=== PATIENT | female | born 1955 | race Two or more races ===

== ENCOUNTER 2024-08-09 16:39 | Inpatient (IN) | payer OTHER ==
[~2024-08-09] VITALS: Ht 152.4 cm; Wt 102.5 kg
[~2024-08-09 16:39] MED LIST: ATORVASTATIN CA10 MG PO; CATAPRES0.1 MG; CIPRO500 MG PO; DICY10CA PO; LISINOPRIL10 MG; LOSARTAN POTASS50 MG PO; METOPROLOL SUC100 MG PO; NIFE60TA3 PO; ULTRACET PO; ZANTAC300 MG PO
[2024-08-09] MEDS ORDERED: ELIQUIS5 MG (17:06)
[2024-08-09] MEDS ORDERED: TOPROL XL200 MG (17:07)
[2024-08-09] MEDS ORDERED: LASIX20 MG (17:07)
[2024-08-09] MEDS ORDERED: LABETALOL HCL 100 MG/20 ML ML ONE (18:42)
[2024-08-09] MEDS ORDERED: LABETALOL HCL 200 MG/40 ML VIAL IV ONE (18:45)
[2024-08-09] MEDS ORDERED: 0.9 % SODIUM CHLORIDE 1,000 ML IV ONE (18:45)
[2024-08-09 19:14] LABS: HEMATOCRIT 43.7 % (36.0-45.00); HEMOGLOBIN 14.7 g/dL (12.0-15.00); MEAN CELL VOLUME 90.3 fL (80.00-100.00); MEAN CORPUSCULAR HEMOGLOBIN 30.4 pg (27.00-32.0); MEAN CORPUSCULAR HGB CONC 33.7 g/dl (32.0-36.0); PLATELET COUNT 227 K/uL (150-450); RED BLOOD COUNT 4.84 M/uL (4.00-6.00); RED CELL DISTRIBUTION WIDTH 14.8 % (11.5-14.5)
[2024-08-09 19:39] LABS: ALBUMIN 3.3 gm/dL (3.4-5.0); BILIRUBIN TOTAL 0.81 mg/dL (0.3-1.2); CALCIUM 9.1 mg/dL (8.5-10.1); CREATININE SERUM 0.97 mg/dL (0.55-1.02); GFR 57.28; POTASSIUM 3.85 mEq/L (3.5-5.1); TOTAL PROTEIN 6.3 gm/dL (6.4-8.2)
[2024-08-09] MEDS ORDERED: METOPROLOL SUCCINATE 100 MG TAB.SR.24H PO SCH (23:04)
[2024-08-09] MEDS ORDERED: AMIODARONE HCL 50 MG/ML AMPUL IV ONE (23:15)
[2024-08-09] MEDS ORDERED: ACETAMINOPHEN 500 MG GEL..CAP PO PRN (23:15)
[2024-08-10] MEDS ORDERED: FUROsemide 20 MG/2 ML VIAL IV SCH (01:00)
[2024-08-10 04:17] VITALS: BP 129/74; O2SAT 99
[2024-08-10 05:10] LABS: PH,URINE 7.5 (5.0-8.0); URINE APPEARANCE Clear; URINE BILIRRUBIN Negative (NEGATIVE); URINE BLOOD Negative; URINE COLOR Yellow; URINE GLUCOSE Negative (NEGATIVE); URINE KETONE Negative (NEGATIVE); URINE LEUKOCYTE Negative; URINE NITRATE Negative; URINE PROTEIN Negative (NEGATIVE); URINE UROBILINOGEN 0.2 E.U./dl
[2024-08-10 05:11] LABS: URINE BACTERIA 149.3 uL (0.0-1933); URINE EPITHELIAL CELLS 3.3 uL (0.0-38.8); URINE WBC 6.4 uL (0.0-23.2)
[2024-08-10 05:19] LABS: URINE RBC 0.8 uL (0.0-20.8)
[2024-08-10 07:06] LABS: INR 1.12; PROTHROMBIN TIME 12.1 SECONDS (9.0-11.5)
[2024-08-10] MEDS ORDERED: NITROGLYCERIN 250 ML IV SCH (07:45)
[2024-08-10] MEDS ORDERED: NITROGLYCERIN IN 5 % DEXTROSE 250 ML IV SCH (08:30)
[2024-08-10] MEDS ORDERED: AMIODARONE HCL 200 MG TABLET PO SCH (09:00)
[2024-08-10] MEDS ORDERED: FAMOTIDINE/PF 20 MG in 0.9 % SODIUM CHLORIDE 8 ML IV PUSH SCH (09:00)
[2024-08-10] MEDS ORDERED: APIXABAN 5 MG TABLET PO SCH (09:00)
[2024-08-10] MEDS ORDERED: ATORVASTATIN CALCIUM 40 MG TABLET PO SCH (09:00)
[2024-08-10 09:23] VITALS: BP 160/95; O2SAT 99
[2024-08-10 17:20] VITALS: BP 160/90; O2SAT 96
[2024-08-11 00:55] VITALS: BP 156/87; O2SAT 99
[2024-08-11 09:01] VITALS: BP 143/91; O2SAT 98
[2024-08-11] MEDS ORDERED: AMIODARONE HCL 200 MG TABLET PO SCH (17:00)
[2024-08-11 17:14] VITALS: BP 144/99; O2SAT 97
[2024-08-12 02:03] VITALS: BP 141/85; O2SAT 96
[2024-08-12 10:28] VITALS: BP 137/98; O2SAT 95
== END 2024-08-12 12:04 | disposition home or self-care (01) | DRG 308 ==
LOC: ER 16:42 → MEDJ 23:06
PROVIDERS: General Practice; ADMIT Internal Medicine; ATTEND Internal Medicine
PROC: BW24ZZZ Computerized Tomography (CT Scan) of Chest and Abdomen (ICD-10-PCS; principal; 2024-08-09)
PROC: B24BYZZ Ultrasonography of Heart with Aorta using Other Contrast (ICD-10-PCS; 2024-08-09)
PROC: 4A12X4Z Monitoring of Cardiac Electrical Activity, External Approach (ICD-10-PCS; 2024-08-10)
DX: I48.20 Chronic atrial fibrillation, unspecified (principal); J18.9 Pneumonia, unspecified organism; I50.9 Heart failure, unspecified; I11.0 Hypertensive heart disease with heart failure; E66.01 Morbid (severe) obesity due to excess calories; E78.5 Hyperlipidemia, unspecified; D72.829 Elevated white blood cell count, unspecified

== ENCOUNTER 2024-09-06 13:45 | Inpatient (IN) | payer OTHER ==
[~2024-09-06] VITALS: Ht 152.4 cm; Wt 97.1 kg
[~2024-09-06 13:45] MED LIST changes: +ELIQUIS5 MG; +LASIX20 MG; +TOPROL XL200 MG
--- NOTE | 2024-09-06 15:06 | NUR ---
SE RECIBE PACIENTE ALERTA Y ORIENTADA X3 LA CUAL REFIERE VENIR A CAUSA DE QUE MEYERS ESTADO PRESENTADO INFLAMACION EN AREA DE PIERNAS. AL MOMENTO PACIENTE REFIERE NO TENER DOLOR, AREA AFECTADA NO SE VE ENROJECIDA NI CALIENTE. SE MIDEN S/V Y SE UBICA.
[2024-09-06 17:48] LABS: HEMATOCRIT 42.7 % (36.0-45.00); HEMOGLOBIN 13.9 g/dL (12.0-15.00); MEAN CORPUSCULAR HEMOGLOBIN 29.5 pg (27.00-32.0); MEAN CORPUSCULAR HGB CONC 32.5 g/dl (32.0-36.0); PLATELET COUNT 224 K/uL (150-450); RED BLOOD COUNT 4.69 M/uL (4.00-6.00); RED CELL DISTRIBUTION WIDTH 15.3 % (11.5-14.5)
--- NOTE | 2024-09-06 18:03 | NUR ---
GABBY EDUCA A PTE SOBRE [place] MEDICO, SE BELLE MUESTRAS DE LABORATORIO UTILIZANDO MEDIDAS ASEPTICAS. SE COLOCA H/L MERCED DE EDEMA. SE NOTICA RX PENDIENTE A REALIZAR.
[2024-09-06 18:07] LABS: INR 1.15; PARTIAL THROMBOPLASTIN TIME 31.7 SECONDS (22.0-34.0); PROTHROMBIN TIME 12.4 SECONDS (9.0-11.5)
--- NOTE | 2024-09-06 18:15 | NUR ---
SE RECIBE PTE ALERTA Y ORIENTADA X3 EN AREA DE CHEST PAIN, SE COLOCA EN CAMA #17 Y SE CONECTA A MONITOR CARDIACO Y OXIMETRIA DE PULSO. SE CANALIZA PTE EN MANO DERECHA #20 DONDE SE DONIS EN H/L. CAMILLE KEBEDE ENTREGA EKG Y PTE. SE DONIS LA MISMA EN ESPERA DE DR VAZQUEZ POR CONSULTA.
[2024-09-06 18:19] LABS: ALBUMIN 2.9 gm/dL (3.4-5.0); BILIRUBIN TOTAL 0.54 mg/dL (0.3-1.2); CALCIUM 8.7 mg/dL (8.5-10.1); CREATININE SERUM 0.9 mg/dL (0.55-1.02); GFR 62.45; GLOBULINA 3.2 G/DL (2.4-3.5); POTASSIUM 3.41 mEq/L (3.5-5.1); TOTAL PROTEIN 6.1 gm/dL (6.4-8.2)
[2024-09-06 18:52] LABS: URINE APPEARANCE Clear; URINE BILIRRUBIN Negative (NEGATIVE); URINE BLOOD Negative; URINE COLOR Yellow; URINE GLUCOSE Negative (NEGATIVE); URINE KETONE Negative (NEGATIVE); URINE LEUKOCYTE Negative; URINE NITRATE Negative; URINE PROTEIN Negative (NEGATIVE); URINE UROBILINOGEN 0.2 E.U./dl
[2024-09-06 18:53] LABS: URINE BACTERIA 25.6 uL (0.0-1933); URINE RBC 2.5 uL (0.0-20.8)
[2024-09-06 19:14] LABS: URINE CAST 0.14 uL (0.0-1.40); URINE WBC 0.3 uL (0.0-23.2)
[2024-09-06] MEDS ORDERED: FUROsemide 20 MG/2 ML VIAL IV SCH (21:00)
[2024-09-06] MEDS ORDERED: ATORVASTATIN CALCIUM 40 MG TABLET PO SCH (21:00)
[2024-09-06] MEDS ORDERED: ENOXAPARIN SODIUM 100 MG/ML SYRINGE SUBCUTANEO SCH (21:00)
[2024-09-06] MEDS ORDERED: AMIODARONE HCL 50 MG/ML AMPUL IV ONE ×2 (21:00→21:27)
[2024-09-06] MEDS ORDERED: IPRATROPIUM BROMIDE 0.5 MG/2.5 ML AMPUL.NEB IH SCH (21:04)
[2024-09-06] MEDS ORDERED: ACETAMINOPHEN 500 MG GEL..CAP PO PRN (21:15)
[2024-09-06] MEDS ORDERED: FUROsemide 20 MG/2 ML VIAL ONE ×3 (21:27→23:26)
[2024-09-06 22:03] VITALS: BP 125/97; O2SAT 96
[2024-09-07 00:35] VITALS: BP 172/108; O2SAT 96
[2024-09-07 03:41] VITALS: BP 145/92; O2SAT 95
[2024-09-07 08:37] VITALS: BP 135/106; O2SAT 95
[2024-09-07] MEDS ORDERED: METOPROLOL SUCCINATE 100 MG TAB.SR.24H PO SCH (09:00)
[2024-09-07] MEDS ORDERED: FAMOTIDINE/PF 20 MG in 0.9 % SODIUM CHLORIDE 8 ML IV PUSH SCH (09:00)
[2024-09-07] MEDS ORDERED: LOSARTAN POTASSIUM 25 MG TABLET PO SCH (09:00)
[2024-09-07] MEDS ORDERED: POTASSIUM CHLORIDE 10 MEQ CAPSULE PO NR (09:15)
[2024-09-07 17:30] VITALS: BP 150/100
[2024-09-07] MEDS ORDERED: ENALAPRILAT DIHYDRATE 1.25 MG/ML VIAL IV PRN (21:30)
[2024-09-07 22:41] VITALS: BP 172/135
[2024-09-08 08:43] VITALS: BP 137/94
[2024-09-08 12:17] LABS: ABG PH 7.449 (7.35-7.45)
[2024-09-08 12:18] LABS: ABG PO2 85.9 mmHg (80-100); ABG pCO2 43.3 mmHg (35-45); BASE EXCESS 4.7 mmol/l; BICARBONATE 29.3 mmol/l (23-25); SaO2 97.1 %; Tco2 30.7 mmol/l; allen test SATISFACTORY; o2 21 %; puncture site RADIAL RIGHT
[2024-09-08 15:56] LABS: CALCIUM 9.4 mg/dL (8.5-10.1); GFR 55.3
[2024-09-08] MEDS ORDERED: BUMETANIDE 1 MG TABLET PO SCH (17:00)
[2024-09-08 17:22] VITALS: BP 143/88; O2SAT 98
[2024-09-09 02:31] VITALS: BP 135/96
[2024-09-09 08:31] VITALS: BP 112/78
[2024-09-09 16:00] VITALS: BP 155/92
[2024-09-10 01:54] VITALS: BP 131/92; O2SAT 94
[2024-09-10 08:31] VITALS: BP 150/104; O2SAT 96
== END 2024-09-10 15:19 | disposition home or self-care (01) | DRG 292 ==
LOC: ER 13:48 → SEC-K 21:23 → ICU-2 21:23 → MEDI 09-07 13:26
PROVIDERS: General Practice; Internal Medicine; ADMIT Internal Medicine; ATTEND Internal Medicine
PROC: B24BZZZ Ultrasonography of Heart with Aorta (ICD-10-PCS; 2024-09-06)
PROC: 4A12X4Z Monitoring of Cardiac Electrical Activity, External Approach (ICD-10-PCS; principal; 2024-09-07)
DX: I11.0 Hypertensive heart disease with heart failure (principal); I48.20 Chronic atrial fibrillation, unspecified; I50.9 Heart failure, unspecified; E66.01 Morbid (severe) obesity due to excess calories; E78.5 Hyperlipidemia, unspecified

== ENCOUNTER 2024-11-23 15:33 | Emergency (ER) | payer OTHER ==
[~2024-11-23] VITALS: Ht 152.4 cm; Wt 90.7 kg
[2024-11-23 16:58] LABS: HEMATOCRIT 42.5 % (36.0-45.00); MEAN CELL VOLUME 89.8 fL (80.00-100.00); MEAN CORPUSCULAR HEMOGLOBIN 29.6 pg (27.00-32.0); PLATELET COUNT 204 K/uL (150-450); RED BLOOD COUNT 4.74 M/uL (4.00-6.00)
[2024-11-23 17:11] LABS: INR 1.11; PARTIAL THROMBOPLASTIN TIME 27.2 SECONDS (22.0-34.0)
[2024-11-23 17:16] LABS: ALBUMIN 3.3 gm/dL (3.4-5.0); BILIRUBIN TOTAL 0.53 mg/dL (0.3-1.2); CREATININE SERUM 1.28 mg/dL (0.55-1.02); GFR 41.59; GLOBULINA 3.3 G/DL (2.4-3.5); POTASSIUM 3.69 mEq/L (3.5-5.1); TOTAL PROTEIN 6.6 gm/dL (6.4-8.2)
[2024-11-23 17:40] LABS: PH,URINE 7.5 (5.0-8.0); URINE APPEARANCE Clear; URINE BILIRRUBIN Negative (NEGATIVE); URINE BLOOD Negative; URINE COLOR Yellow; URINE GLUCOSE Negative (NEGATIVE); URINE KETONE Negative (NEGATIVE); URINE LEUKOCYTE Trace; URINE NITRATE Negative; URINE PROTEIN Trace (NEGATIVE); URINE UROBILINOGEN 0.2 E.U./dl
[2024-11-23 17:41] LABS: URINE BACTERIA 494.3 uL (0.0-1933); URINE EPITHELIAL CELLS 17.2 uL (0.0-38.8); URINE RBC 8.8 uL (0.0-20.8); URINE WBC 19.7 uL (0.0-23.2)
[2024-11-23 17:42] LABS: URINE CAST 0.29 uL (0.0-1.40)
== END 2024-11-23 19:12 | disposition home or self-care (01) ==
LOC: ER 15:35
PROVIDERS: General Practice
DX: R55 Syncope and collapse (principal); R53.81 Other malaise; I10 Essential (primary) hypertension; Z88.0 Allergy status to penicillin; Z88.2 Allergy status to sulfonamides; Z91.013 Allergy to seafood

== ENCOUNTER 2025-02-11 17:08 | Emergency (ER) | payer OTHER ==
[~2025-02-11] VITALS: Ht 152.4 cm; Wt 90.7 kg
[2025-02-11] MEDS ORDERED: CLINDAMYCIN HC300 MG PO (17:28)
[2025-02-11] MEDS ORDERED: AMIODARONE HCL200 MG (17:28)
[2025-02-11 19:11] LABS: BASO % 0.7 % (0.1-1.2); EOS # 0.05 (0.04-0.54); EOS % 1.1 % (0.7-7.0); LYMPH # 0.95 (1.18-3.74); LYMPH % 20.7 % (19.3-53.1); MEAN PLATELET VOLUME 9.30 fl (9.4-12.4); MONO # 0.48 (0.24-0.82); MONO % 10.5 % (4.7-12.5); NEUT # 3.06 (1.56-6.13); NEUT % 66.8 % (34.0-71.1); RED CELL DISTRIBUTION WIDTH 14.4 % (11.6-14.4)
[2025-02-11 19:32] LABS: ALT/SGPT 47.0 U/L (12-78); AST/SGOT 33.0 U/L (15-37); BILIRUBIN TOTAL 0.39 mg/dL (0.3-1.2); BUN CREA RATIO 13.0 (7.0-25.0); CREATININE SERUM 0.96 mg/dL (0.55-1.02); GFR 57.8; GLOBULINA 3.1 G/DL (2.4-3.5); GLUCOSE FASTING 100.0 mg/dL (65-100); OSMOLALITY SERUM 289.0 MOSM/KG (275-295)
[2025-02-11 19:46] LABS: COVID-19 AG NEGATIVE (NEGATIVE)
[2025-02-11] MEDS ORDERED: INTESTINEX680 M1 PO (21:00)
== END 2025-02-11 21:37 | disposition home or self-care (01) ==
LOC: ER 17:08
PROVIDERS: Preventive Medicine Public Health & General Preventive Medicine
DX: S80.822A Blister (nonthermal), left lower leg, initial encounter (principal); R60.0 Localized edema; Z91.013 Allergy to seafood; Z88.2 Allergy status to sulfonamides; Z88.0 Allergy status to penicillin; I25.10 Atherosclerotic heart disease of native coronary artery without angina pectoris; I48.91 Unspecified atrial fibrillation; Z20.822 Contact with and (suspected) exposure to COVID-19

== ENCOUNTER 2025-07-18 13:55 | Inpatient (IN) | payer OTHER ==
[~2025-07-18] VITALS: Ht 162.6 cm; Wt 81.6 kg
[~2025-07-18 13:55] MED LIST changes: +AMIODARONE HCL200 MG; +CLINDAMYCIN HC300 MG PO; +INTESTINEX680 M1 PO
--- NOTE | 2025-07-18 14:45 | NUR ---
PACIENTE FEMINA, C/C DOLOR ABDOMINAL, SE UBICA EN PASILLO PARA SER EVALUADA.
[2025-07-18 17:21] LABS: BASO % 0.6 % (0.1-1.2); EOS # 0.06 (0.04-0.54); EOS % 1.1 % (0.7-7.0); LYMPH # 0.82 (1.18-3.74); LYMPH % 15.5 % (19.3-53.1); MEAN PLATELET VOLUME 9.70 fl (9.4-12.4); MONO # 0.52 (0.24-0.82); MONO % 9.8 % (4.7-12.5); NEUT # 3.85 (1.56-6.13); NEUT % 72.8 % (34.0-71.1); RED CELL DISTRIBUTION WIDTH 14.0 % (11.6-14.4)
[2025-07-18 17:56] LABS: INR 1.15
[2025-07-18 18:21] LABS: ALT/SGPT 32.0 U/L (12-78); AST/SGOT 31.0 U/L (15-37); BILIRUBIN TOTAL 0.35 mg/dL (0.3-1.2); BUN CREA RATIO 13.0 (7.0-25.0); CREATININE SERUM 0.9 mg/dL (0.55-1.02); GFR 62.26; GLOBULINA 3.2 G/DL (2.4-3.5); GLUCOSE FASTING 107.0 mg/dL (65-100); OSMOLALITY SERUM 281.0 MOSM/KG (275-295)
[2025-07-18 18:25] LABS: URINE APPEARANCE Clear; URINE BILIRRUBIN Negative (NEGATIVE); URINE BLOOD Negative; URINE COLOR Yellow; URINE GLUCOSE Negative (NEGATIVE); URINE KETONE Negative (NEGATIVE); URINE LEUKOCYTE Trace; URINE NITRATE Negative; URINE PROTEIN Negative (NEGATIVE); URINE UROBILINOGEN 0.2 E.U./dl
[2025-07-18 18:27] LABS: URINE BACTERIA 21.6 uL (0.0-1933); URINE EPITHELIAL CELLS 4.8 uL (0.0-38.8); URINE RBC 2.2 uL (0.0-20.8); URINE WBC 24.4 uL (0.0-23.2)
[2025-07-18 18:36] LABS: URINE CAST 0.00 uL (0.0-1.40)
[2025-07-18 18:43] LABS: COVID-19 AG NEGATIVE (NEGATIVE)
--- NOTE | 2025-07-18 19:41 | NUR ---
SE ORIENTA PTE SOBRE CRISTIAN DE MUESTRAS LAS CUALES SE EXTRAEN BAJO MEDIDAS ASEPTICAS,SE NOTIFICAN ESTUDIOS PENDIENTES.
--- NOTE | 2025-07-19 02:00 | NUR ---
SE UBICA PACIENTE EN CAMA, SE CONECTA A MONITOR CARDIACO Y OXIMETRIA DE PULSO CONTINUA, SE LE MONITOREAN S/V, SE DOCUMENTAN, SE CANALIZA Y SE ADM MEDICAMENTOS BAJO MEDIDA ASEPTICAS, PACIENTE TOLERA Y SE MANTIENE BAJO OBSERVACION POR CAMBIOS EN ANNE CONDICION.
[2025-07-19] MEDS ORDERED: APIXABAN 5 MG TABLET PO SCH (17:38)
[2025-07-19] MEDS ORDERED: METOPROLOL SUCCINATE 25 MG TAB.SR.24H PO SCH (17:39)
[2025-07-19] MEDS ORDERED: NITROGLYCERIN IN 5 % DEXTROSE 250 ML IV SCH (17:45)
[2025-07-19 23:38] VITALS: BP 151/112; O2SAT 95
[2025-07-20 06:31] VITALS: BP 160/106; O2SAT 99
[2025-07-20 06:58] LABS: BASO % 0.6 % (0.1-1.2); EOS # 0.06 (0.04-0.54); EOS % 1.1 % (0.7-7.0); LYMPH # 0.81 (1.18-3.74); LYMPH % 15.3 % (19.3-53.1); MEAN PLATELET VOLUME 9.60 fl (9.4-12.4); MONO # 0.52 (0.24-0.82); MONO % 9.8 % (4.7-12.5); NEUT # 3.87 (1.56-6.13); NEUT % 72.8 % (34.0-71.1); RED CELL DISTRIBUTION WIDTH 14.0 % (11.6-14.4)
[2025-07-20 07:30] LABS: INR 1.12
[2025-07-20 07:44] LABS: BUN CREA RATIO 14.0 (7.0-25.0); CREATININE SERUM 0.64 mg/dL (0.55-1.02); GFR 92.28; GLUCOSE FASTING 99.0 mg/dL (65-100); OSMOLALITY SERUM 280.0 MOSM/KG (275-295)
[2025-07-20 08:38] VITALS: BP 151/92; O2SAT 98
[2025-07-20 16:00] VITALS: BP 130/69; O2SAT 95
[2025-07-20] MEDS ORDERED: ACETAMINOPHEN 500 MG GEL..CAP PO PRN (21:45)
[2025-07-21 01:50] VITALS: BP 152/84; O2SAT 97
[2025-07-21 08:35] VITALS: BP 154/103; O2SAT 96
[2025-07-21] MEDS ORDERED: METOPROLOL SUCCINATE 50 MG TAB.SR.24H PO SCH (09:00)
[2025-07-21] MEDS ORDERED: LOSARTAN POTASSIUM 25 MG TABLET PO SCH (09:00)
== END 2025-07-21 12:00 | disposition home or self-care (01) | DRG 293 ==
LOC: ER 13:55 → SURH 07-19 17:58 → SEC-K 07-19 17:58 → SURH 07-19 23:39
PROVIDERS: General Practice; ADMIT Student in an Organized Health Care Education/Training Program; ATTEND Student in an Organized Health Care Education/Training Program
PROC: BW21ZZZ Computerized Tomography (CT Scan) of Abdomen and Pelvis (ICD-10-PCS; principal; 2025-07-18)
PROC: B24BYZZ Ultrasonography of Heart with Aorta using Other Contrast (ICD-10-PCS; 2025-07-19)
PROC: 4A12X4Z Monitoring of Cardiac Electrical Activity, External Approach (ICD-10-PCS; 2025-07-20)
DX: I50.9 Heart failure, unspecified (principal); I48.91 Unspecified atrial fibrillation; R06.00 Dyspnea, unspecified